=== PATIENT | male | born 1995 | race Caucasian/White ===

== ENCOUNTER 2021-09-21 11:15 | Emergency (ER) | payer OTHER, BC ==
[~2021-09-21] VITALS: Ht 175.3 cm; Wt 70.3 kg
== END 2021-09-21 12:23 | disposition home or self-care (01) ==
LOC: ED 11:15
DX: S90.31XA Contusion of right foot, initial encounter (principal); W20.8XXA Other cause of strike by thrown, projected or falling object, initial encounter
CPT/HCPCS: 73630

== ENCOUNTER 2023-03-21 17:30 | Emergency (ER) | payer BC ==
[~2023-03-21] VITALS: Ht 177.8 cm; Wt 73.1 kg
[2023-03-21 18:38] LABS: INFLUENZA B NAA NEGATIVE (NEGATIVE); RESPIRATORY SYNCYTIAL VIR NAA POSITIVE (NEGATIVE)
[2023-03-21] MEDS ORDERED: NAPROSYN500 MG PO (18:42)
[2023-03-21] MEDS ORDERED: VENTOLIN HFA18 GM INH (18:46)
[2023-03-21 18:58] VITALS: BP 111/76
== END 2023-03-21 18:59 | disposition home or self-care (01) ==
LOC: ED 17:30
PROVIDERS: Emergency Medicine
DX: J06.9 Acute upper respiratory infection, unspecified (principal); B97.89 Other viral agents as the cause of diseases classified elsewhere; J20.5 Acute bronchitis due to respiratory syncytial virus; Z20.822 Contact with and (suspected) exposure to COVID-19
CPT/HCPCS: 87502; 87651; 99283; A9270; U0002